=== PATIENT | male | born 1940 | race Caucasian/White ===

== ENCOUNTER 2023-08-20 23:53 | Emergency (ER) | payer MEDICARE, OTHER, SELFPAY ==
[2023-08-20 23:55] VITALS: BP 151/74; PULSE 80; RESP 15; TEMP 35.9; O2SAT 96; BMI 26.2
--- NOTE | 2023-08-21 00:05 | EX.ED.DYSGE1 ---
HPI History of Present Illness Chief Complaint: Palpitations Informant: patient and spouse/S.O. Narrative Narrative: 83-year-old male who suddenly started feeling palpitations while he was sitting watching TV several hours ago. He has had this before, not very often, but usually very brief and goes away, but this time it has been persistent, feels like skipping. He has had some lightheadedness couple times. In checking his blood pressure at home, it was not low, but his pulse was reading in the 40 range as it was in triage here. He has had no near-syncope or syncope. No recent illness. States he has been diagnosed with skipped beats in the past. He denies any chest discomfort or dyspnea, no diaphoresis or other systemic symptoms. He states when he exerts himself or exercises he does not get any chest discomfort or dyspnea, just some fatigue and aching in his legs that goes away when he rests. He has a history of coronary stents. Spends half his time in [place] throughout the year when he is here he sees [facility] cardiology in [place]. [facility] Medical History (Updated 08/21/23 @ 01:[address] Sunday Gore MD) Prediabetes HTN (hypertension) CAD (coronary artery disease) Prostate cancer Constipation Hypercholesteremia Home Medications ?Medication ?Instructions ?Recorded ?Last Taken ?Type amitriptyline 10 mg tablet 20 mg PO QHS 08/21/23 Unknown History amlodipine 10 mg tablet 10 mg PO DAILY 08/21/23 Unknown History ezetimibe 10 mg tablet 10 mg PO DAILY 08/21/23 Unknown History indapamide 2.5 mg tablet 2.5 mg PO DAILY 08/21/23 Unknown History losartan 100 mg tablet 100 mg PO DAILY 08/21/23 Unknown History metoprolol succinate 100 mg 100 mg PO DAILY 08/21/23 Unknown History tablet,extended release 24 hr pantoprazole 40 mg tablet,delayed 40 mg PO DAILY 08/21/23 Unknown History release potassium chloride 8 mEq 8 meq PO DAILY 08/21/23 Unknown History capsule,extended release rosuvastatin 40 mg tablet 40 mg PO DAILY 08/21/23 Unknown History vitamin A-vitamin C-vit E-min 2 tab PO DAILY 08/21/23 Unknown History tablet Allergy/AdvReac Type Severity Reaction Status Date / Time allopurinol Allergy Mild Rash Verified 08/21/23 00:16 Iodinated Contrast Media Allergy Mild Hives Verified 08/21/23 00:16 (IVP dye) ramipril Allergy Mild Hives Verified 08/21/23 00:16 diclofenac AdvReac Mild elevated Verified 08/21/23 00:16 liver enzymes Surgical History History of back surgery Hx of heart artery stent Social History Smoking Status: Former smoker ROS ROS ED Constitutional Constitutional ED: Denies chills or fever(s) Eyes Eyes: Denies change in vision or diplopia ENT ENT ED: Denies rhinorrhea or sore throat Cardiovascular Cardiovascular: Reports as per HPI, lightheadedness and palpitations; Denies chest pain, leg edema or syncope Respiratory/Chest Respiratory/Chest: Denies cough or dyspnea Gastrointestinal Gastrointestinal: Denies abdominal pain, diarrhea, nausea or vomiting Genitourinary Genitourinary ED: Denies dysuria or hematuria Musculoskeletal Musculoskeletal: Denies back pain or neck pain Integumentary Denies abscess or rash Neurologic Neurologic: Denies headache(s), paresthesias or weakness Psychiatric Psychiatric: Denies anxiety or suicidal thoughts EXAM Physical Exam Const Vital Signs: 08/20/23 23:55 08/20/23 23:55 08/21/23 00:06 Temperature 96.7 F L Temperature Source Temporal Pulse Rate 80 Respiratory Rate 15 Respiratory Effort Normal Blood Pressure 151/74 H Blood Pressure Mean 99 Pulse Ox 96 96 Oxygen Delivery Method Room Air Room Air 08/21/23 00:46 Temperature Temperature Source Pulse Rate 70 Respiratory Rate 18 Respiratory Effort Blood Pressure 122/93 H Blood Pressure Mean 102 Pulse Ox 95 Oxygen Delivery Method Room Air Positive well nourished and well developed General Appearance ED: well developed and NAD HEENT Reports moist mucous membranes normocephalic and atraumatic Eyes PERRL and EOMs intact bilaterally Neck full ROM and supple Resp normal respiratory effort and clear to auscultation bilaterally Cardio regular rate and regular rhythm Cardio Narrative: Faint heart sounds. Pulses around 80, cut in half to 40 correlating with ventricular bigeminy on the monitor which is intermittent. For the most part, monitor shows sinus rhythm without ectopy. GI non-tender and non-distended Auscultation: normoactive bowel sounds Palpation: soft Back/Spine no CVA tenderness General Back: other FROM Extremity normal to inspection General Extremety ED: Negative for edema, pulses abnormal or tenderness General Extremity: Negative for edema or pulses abnormal Neuro oriented x3, CN's II-XII intact bilaterally, no sensory deficits noted and gait normal Sensorium / Orientation: awake and alert Motor Exam: strength 5/5 throughout Psych mental status grossly normal Skin no rashes or lesions noted and no wounds MDM MDM MDM Narrative Medical decision making narrative: Upon looking the patient up to the monitor is evident that he is having paroxysmal ventricular bigeminy and no dysrhythmia. When he does this his pulse gets cut in half to 40, he is not symptomatic with that here except for feeling the palpitations. Looking on [employer] I found his medication list from outpatient cardiology visit in November and he states his medications have not changed, with this includes metoprolol 100 mg every morning, extended release. I am giving him an oral dose of metoprolol tartrate 12.5 mg here as we obtained electrolytes, blood counts, and a single troponin, which was negative confirming he is not having a silent ND. On reevaluation he feels well and asymptomatic although he was still having occasional PVCs, not in bigeminy. His repeat blood pressure is 122/93 with a heart rate of 70. He is ambulatory without symptoms or near syncope. I believe he is stable for discharge home recommending close outpatient follow-up with his director of assessing and I would maintain his medications for now. History & Record Review Additional record(s) reviewed:: Prior outpatient record ([facility] EKG 11/22/22 report via [employer], revealing RBBB and leftward axis, NSR; also outpt cardiology visit same date, w/ meds/allergies) Lab Data Attestation: I reviewed the patient's lab results. Labs: Laboratory Results - last 24 hr 08/21/23 00:10 WBC 9.4 RBC 4.70 Hgb 12.9 L Hct 40.2 MCV 85.5 MCH 27.4 MCHC 32.1 RDW Std Deviation 44.7 H RDW Coeff of Matty 14.3 Plt Count 223 MPV 11.4 Immature Gran % (Auto) 1.200 H Neut % (Auto) 61.8 Lymph % (Auto) 20.7 [place] % (Auto) 10.6 H Eos % (Auto) 5.0 Baso % (Auto) 0.7 Absolute Neuts (auto) 5.8 Absolute Lymphs (auto) 1.94 Nucleated RBC % 0 Sodium 140 Potassium 3.8 Chloride 106 Carbon Dioxide 28.0 Anion Gap 6 BUN 30 H Creatinine 1.32 H Estim Creat Clear Calc 36.88 Est GFR (MDRD) Af Amer 67 Est GFR (MDRD) Non-Af 55 L BUN/Creatinine Ratio 22.7 H Glucose 113 H Calcium 9.3 Troponin I High Sens 7 Rhythm Strip Rhythm Strip: Sinus Rhythm Rate: 80 Ectopy: PVC(s) (In bigeminy) EKG Initial EKG: Attestation: I personally reviewed and interpreted this EKG as follows: Interpretation: Sinus Rhythm, No Acute Injury Pattern, RBBB and LAFB Prior EKG tracings: not available for review Discharge Plan Triage Chief Complaint: Palpitations ED Provider: Sunday Gore Dx/Rx/DC Orders Clinical Impression: PVCs (premature ventricular contractions), Ventricular bigeminy Instructions: PVCs Prescriptions: No Action potassium chloride 8 mEq capsule, extended release 8 meq PO DAILY indapamide 2.5 mg tablet 2.5 mg PO DAILY metoprolol succinate 100 mg tablet extended release 24 hr 100 mg PO DAILY amitriptyline 10 mg tablet 20 mg PO QHS amlodipine 10 mg tablet 10 mg PO DAILY pantoprazole 40 mg tablet,delayed release (DR/EC) 40 mg PO DAILY losartan 100 mg tablet 100 mg PO DAILY ezetimibe 10 mg tablet 10 mg PO DAILY rosuvastatin 40 mg tablet 40 mg PO DAILY vitamin A-vitamin C-vit E-min Tablet 2 tab PO DAILY Primary Care Provider: Prudence Christiansen Referrals: director of assessing, your [Other] Prudence Christiansen MD [Primary Care Provider] - Print Language: Khmer Disposition Disposition: Home, Self Care
[2023-08-21 00:06] VITALS: O2SAT 96
[2023-08-21 00:32] LABS: Absolute Lymphocyte Count 1.94 X10^3/uL (0.83-4.51); Absolute Neutrophil Count 5.8 X10^3/uL (2.0-7.7); Basophil# 0.07 X10^3/uL; Basophil% 0.7 % (0-1); Eosinophil# 0.47 X10^3/uL; Hematocrit 40.2 % (40-54); Hemoglobin 12.9 g/dL (13.0-16.5); Lymphocyte # 1.94 X10^3/ul (0.83-4.51); Lymphocyte % 20.7 % (19-41); Mean Corp Hgb Conc 32.1 g/dL (32-36); Mean Corpuscular Hgb 27.4 pg (27.0-32.0); Mean Corpuscular Volume 85.5 fL (80-94); Mean Platelet Vol. 11.4 fl (6.2-12.0); Monocyte# 0.99 X10^3/uL; Monocyte% 10.6 % (0-10); NRBC Flagged by Analyzer 0 % (0-5); Neutrophil % 61.8 % (47-70); Platelet Count 223 K/mm3 (150-450); RBC Distribution Width CV 14.3 % (11.6-14.6); RBC Distribution Width SD 44.7 fl (35.1-43.9); White Blood Count 9.4 K/mm3 (4.4-11.0)
[2023-08-21] MEDS: Metoprolol Tartrate 25 MG Tablet 12.5 MG PO (00:44)
[2023-08-21 00:46] VITALS: BP 122/93; PULSE 70; RESP 18; O2SAT 95
[2023-08-21 01:06] LABS: Anion Gap 6 (5-15); BUN 30 mg/dL (7-18); BUN/Creat Ratio 22.7 RATIO (10-20); Calcium,Total 9.3 mg/dL (8.5-10.1); Chloride 106 mmol/L (98-107); Creatinine, Serum 1.32 mg/dL (0.70-1.30); EST Glomerular Filtration Rate 55 mL/min (>60); Est Glom Filt Rate - Afr Amer 67 mL/min (>60); Estimated Creatinine Clearance 36.88 ml/min; Glucose 113 mg/dL (74-106); Potassium 3.8 mmol/L (3.5-5.1); Sodium Level 140 mmol/L (136-145); Troponin-I HS 7 pg/mL (3.0-78.0)
[2023-08-21 01:22] VITALS: BP 125/62; PULSE 78; RESP 16; TEMP 36.8; O2SAT 97
== END 2023-08-21 01:28 | disposition home or self-care (01) ==
PROVIDERS: Emergency Provider Emergency Medicine; PCP Internal Medicine; Visit Provider Emergency Medicine
DX: R00.2 Palpitations (principal); I49.3 Ventricular premature depolarization; Z87.891 Personal history of nicotine dependence; Z95.5 Presence of coronary angioplasty implant and graft; I10 Essential (primary) hypertension; I25.10 Atherosclerotic heart disease of native coronary artery without angina pectoris; E78.00 Pure hypercholesterolemia, unspecified; R73.03 Prediabetes; Z79.899 Other long term (current) drug therapy
CPT/HCPCS: 80048; 84484; 85025; 93005; 99283; J7050; A4216